=== PATIENT | female | born 2000 | race Two or more races ===

== ENCOUNTER → 2024-06-17 | Outpatient (CLI) | payer BC, MEDICAID, SELFPAY ==
[2024-06-17 10:45] LABS: Glucose Estimated Average 100 mg/dL (80-131); Hemoglobin A1C 5.1 % Hgb (4.8-6.0)
[2024-06-17 10:50] LABS: Free T4 (Free Thyroxine) 1.21 ng/dL (0.89-1.76); Thyroid Stimulating Hormone 1.43 uIU/mL (0.55-4.78)
[2024-06-23 06:27] LABS: Insulin* 6.5 uIU/mL (< OR = 18.4)
== END | disposition home or self-care (01) ==
PROVIDERS: PCP Internal Medicine; Referring Provider Pediatrics Pediatric Endocrinology; Visit Provider Pediatrics Pediatric Endocrinology
DX: R63.5 Abnormal weight gain (principal); E03.8 Other specified hypothyroidism
CPT/HCPCS: 36415; 83036; 83525; 84439; 84443

== ENCOUNTER → 2024-12-02 | Outpatient (CLI) | payer BC, MEDICAID, SELFPAY ==
[2024-12-02 09:53] LABS: Free T4 (Free Thyroxine) 1.20 ng/dL (0.89-1.76); Thyroid Stimulating Hormone 2.33 uIU/mL (0.55-4.78)
== END | disposition home or self-care (01) ==
LOC: COPL 08:09
PROVIDERS: PCP Internal Medicine; Referring Provider Pediatrics Pediatric Endocrinology; Visit Provider Pediatrics Pediatric Endocrinology
DX: E03.8 Other specified hypothyroidism (principal)
CPT/HCPCS: 36415; 84439; 84443

== ENCOUNTER → 2024-12-13 | Outpatient (CLI) | payer BC, MEDICAID, SELFPAY ==
[2024-12-16 06:23] LABS: (tTG) Ab, IgA <1.0 U/mL; (tTG) Ab, IgG <1.0 U/mL; IgA, Serum* 282 mg/dL (47-310)
== END | disposition home or self-care (01) ==
LOC: COPL 11:44
PROVIDERS: PCP Internal Medicine; Referring Provider Pediatrics Pediatric Endocrinology; Visit Provider Pediatrics Pediatric Endocrinology
DX: K90.0 Celiac disease (principal)
CPT/HCPCS: 36415; 82784; 86364